=== PATIENT | male | born 1955 | race Caucasian/White ===

== ENCOUNTER 2021-05-23 12:19 | Emergency (ER) | payer MEDICARE, SELFPAY ==
[2021-05-23 12:47] VITALS: BP 164/83; PULSE 88; RESP 14; TEMP 36.9; O2SAT 96; BMI 25.8
--- NOTE | 2021-05-23 13:14 | CT_ITS ---
WS: [id number] CT HEAD NONCONTRAST HISTORY: double vision, dizzy TECHNIQUE: Contiguous axial imaging performed through the brain in 2.5 mm imaging. Bone and soft tiss ue windows. Sagittal and coronal reformats reviewed. All CT scans at [facility] use at least one of these dose optimization techniques: automated exposure control; mA and/or kV adjustment per pa tient size (includes targeted exams where dose is matched to clinical indication); or iterative recon struction. DLP: 1024.71 mGy.cm COMPARISON: None available. No acute intracranial hemorrhage, midline shift or mass effect. Mild atrophy. 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 Ventricles: Normal size with no hydrocephalus. Paranasal sinuses: Complete opacification of the RIGHT maxillary sinus with extension into the ethmoi d sinus. Mastoid air cells: Well pneumatized. Calvarium and scalp: Skull is intact with no soft tissue edema or swelling. CT/CT head wo con* [id number] IMPRESSION: 1. No acute intracranial hemorrhage or edema. 2. Mild atrophy and prior RIGHT caudate head lacunar infarct. 3. RIGHT maxillary sinus disease.
--- NOTE | 2021-05-23 13:15 | ECG_ITS ---
[facility] Test Date: 2021-05-23 Pat Name: Jacky Zepeda Department: Room: Gender: Male Payroll Representative: : 1955 Requested By: Stefania Tim Order Number: [id number] Ericka MD: Kylie Corbett M.D. Measurements Intervals [place] Rate: 79 P: 54 UT: 152 QRS: 62 QRSD: 73 T: 48 QT: 366 QTc: 420 Interpretive Statements SINUS RHYTHM No previous ECG available for comparison Electronically Signed On 05-23-2021 20:14:38 CDT by Kylie Corbett M.D. [id number]
--- NOTE | 2021-05-23 17:14 | PC.NURSE ---
Assumed care of this patient at 1700
[2021-05-23 17:15] VITALS: BP 168/94; PULSE 84; RESP 16; TEMP 36.6; O2SAT 97
[2021-05-23 17:36] LABS: Basophils # 0.1 10^3/uL (0.0-0.1); Basophils % 0.7 %; Eosinophils # 0.4 10^3/uL (0.0-0.8); Eosinophils % 3.9 %; Hematocrit 46.5 % (42.0-52.0); Lymphocytes # 2.3 10^3/uL (0.8-4.8); Lymphocytes % 26.4 %; Mean Corpuscular HGB Conc 34.4 g/dL (30.0-36.0); Mean Corpuscular Hemoglobin 29.4 pg (28.0-34.0); Mean Corpuscular Volume 85.3 fl (80-94); Mean Platelet Volume 9.9 fL (7.4-10.4); Monocytes # 0.7 10^3/uL (0.2-0.9); Monocytes % 8.1 %; Neutrophils # 5.39 10^3/uL (1.8-7.7); Neutrophils % 60.7 %; Nucleated Red Blood Cells % 0 %; Platelet Count 181 10^3/cmm (130-400); Red Blood Count 5.45 10^6/uL (4.1-5.3); Red Cell Distribution Width 12.5 % (12.1-15.1); White Blood Count 8.9 10^3/uL (4.0-10.0)
[2021-05-23 17:39] VITALS: BP 132/74; PULSE 78; RESP 16; O2SAT 98
--- NOTE | 2021-05-23 17:41 | ED_ITS ---
Documented by User: Don Ta DO 05/26/21 15:21 HPI - Neuro Symptoms/Deficit General: Chief Complaint: Neuro Symptoms/Deficit Stated Complaint: DOUBLE VISION, VERITGO, FATIGUE, WEAKNESS Time Seen by Provider: 05/23/21 16:29 History of Present Illness: HPI Narrative: 6-year-old male presents to the emergency room with complaint of double vision vertigo fatigue and weakness. This all started about 3 3 days ago. He said he is extremely tired on Friday he can barely stay awake and he had double vision issues. Most of this are resolved except he still has double vision at a distance close up he seems to be okay but at a distance of 4 feet and beyond he will start to have difficulty focusing and sees double. His states she is not had any difficulty with he has not had any problems with balance or gait no difficulty swallowing or speaking. Onset (ago): hour(s) Timing confirmed by: spouse Location: other (vision) Severity: mild Relieving factors: none Exacerbating factors: none Associated symptoms: Reports weakness; Deny chest pain, cough, diaphoresis, fevers/chills, headache(s), anorexia, malaise, nausea, seizures, short of breath, syncope, tingling, vertigo or vomiting Treatments Prior to Arrival: none Review of Systems Const: Denies: malaise or diaphoresis ENMT: Denies: throat pain, ear or mastoid pain, nasal discharge or nasal congestion Card: Denies: chest pain or syncope Resp: Denies: dyspnea, productive cough or non-productive cough GI: Denies: nausea or vomiting : Denies: flank pain, dysuria, urinary frequency or urinary urgency Skin/Breast: Denies: rash or pruritus Neuro: Denies: headache(s) or vertigo NIH stroke score NIHSS: Level Of Consciousness - 1a: 0 Level Of Consciousness Questions - 1b: Both Correct Level Of Consciousness Commands - 1c: Both Correct Best Gaze - 2: Normal Visual Aly - 3: No Visual Loss Facial Palsy - 4: Normal Motor Arm Right - 5: No Drift Motor Arm Left - 5: No Drift Motor Leg Right - 6: No Drift Motor Leg Left - 6: No Drift Limb Ataxia - 7: Absent Sensory - 8: Normal Best Language - 9: No Aphasia Dysarthia - 10: Normal Extinction And Inattention - 11: 0 Score: Total Score: 0 Physical Exam Const: COMMON NORMALS: no acute distress GENERAL APPEARANCE: cooperative and comfortable ORIENTATION/CONSCIOUSNESS: Yes awake, Yes oriented to person, Yes oriented to place and Yes oriented to time HENMT: COMMON NORMALS: normocephalic, atraumatic and hearing grossly normal bilaterally HEAD & SCALP: normocephalic and atraumatic Neck/C-Spine: COMMON NORMALS: no JVD Resp: COMMON NORMALS: normal respiratory effort, No retractions, No use of accessory muscles and clear to auscultation bilaterally AUSCULTATION: clear to auscultation bilaterally Cardio: COMMON NORMALS: no JVD, regular rate, regular rhythm and No murmurs present (Cardio) RATE: regular rate RHYTHM: regular rhythm GI: COMMON NORMALS: Soft to palpation and No hepatosplenomegaly present AUSCULTATION: Yes normoactive bowel sounds PALPATION: Yes Soft to palpation, No Tenderness to palpation present (GI), No Guarding due to palpation present (GI) and Yes No hepatosplenomegaly present Extremity: COMMON NORMALS: normal to inspection, capillary refill normal, no clubbing, cyanosis or edema, no calf tenderness and no pedal edema Neuro: SENSORIUM/ORIENTATION: Yes oriented to person, Yes oriented to place and Yes oriented to time OTHER: [id number] normal. Cranial nerves II to XII intact. Rapid alternating movements normal. See NIH score. Skin: COMMON NORMALS: no rashes or lesions noted GENERAL SKIN EXAM: no rashes or lesions noted Course 2 Vital Signs: Vital signs: Vital Signs Temperature 98 F 05/23/21 19:46 Pulse Rate 74 05/23/21 19:46 Respiratory Rate 16 05/23/21 19:46 Blood Pressure 136/80 05/23/21 19:46 Pulse Oximetry 96 05/23/21 19:46 MDM - Neuro Symptoms/Deficit MDM Narrative: Medical decision making narrative: Patient still has some double vision. He also has elevated blood pressures and think he may benefit from low-dose blood pressure medications however I am concerned if he has some vertebral artery stenosis or other compromise lowering his blood pressure may precipitate more of a stroke. Were going to do a CTA. Discussed with Dr. Carey he will assume care of the patient see his note for final diagnosis and discharge. Lab Data: Labs: Lab Results 05/23/21 05/23/21 17:30 17:30 WBC 8.9 10^3/uL 10^3/ uL (4.0-10.0) RBC 5.45 10^6/uL H 10 ^6/uL (4.1-5.3) Hgb 16.0 g/dL g/dL (11.7-16.6) Hct 46.5 % % (42.0-52.0) MCV 85.3 fl fl (80-94) MCH 29.4 pg pg (28.0-34.0) MCHC 34.4 g/dL g/dL (30.0-36.0) RDW 12.5 % % (12.1-15.1) Plt Count 181 10^3/cmm 10^3 /cmm (130-400) MPV 9.9 fL fL (7.4-10.4) Neut % (Auto) 60.7 % % Lymph % (Auto) 26.4 % % Calvert % (Auto) 8.1 % % Eos % (Auto) 3.9 % % Baso % (Auto) 0.7 % % Neut # (Auto) 5.39 10^3/uL 10^3 /uL (1.8-7.7) Lymph # (Auto) 2.3 10^3/uL 10^3/ uL (0.8-4.8) Calvert # (Auto) 0.7 10^3/uL 10^3/ uL (0.2-0.9) Eos # (Auto) 0.4 10^3/uL 10^3/ uL (0.0-0.8) Baso # (Auto) 0.1 10^3/uL 10^3/ uL (0.0-0.1) Nucleated RBC % (a uto) 0 % % Nucleated RBCs # 0.0 /100WBC /100W BC Sodium 135 mmol/L L mmol /L (136-145) Potassium 4.3 mmol/L mmol/L (3.5-5.1) Chloride 97 mmol/L L mmol/ L (98-107) Carbon Dioxide 27 mmol/L mmol/L (22-29) Anion Gap 15.3 (5-19) BUN 18 mg/dL mg/dL (8-23) Creatinine 0.7 mg/dL mg/dL (0.7-1.2) GFR Calculation 112.5 mL/min mL/m in (90-130) Glucose 289 mg/dL H mg/dL (65-115) Calculated Osmolal ity 292 mOsm/kg mOsm/ kg (285-295) Calcium 9.8 mg/dL mg/dL (8.5-10.5) Total Bilirubin 0.3 mg/dL mg/dL (0.15-1.2) AST 14 U/L U/L (0-40) ALT 18 U/L U/L (0-41) Alkaline Phosphata se 82 IU/L IU/L (40-130) Total Protein 7.5 g/dL g/dL (6.6-8.7) Albumin 4.6 g/dL g/dL (3.5-5.2) Globulin 2.9 g/dL g/dL (1.3-4.6) Discharge Plan Discharge Patient Disposition: Home Clinical Impression: Transient cerebral ischemia Condition: Stable Prescriptions: New lisinopril 10 mg tablet 10 mg PO DAILY Qty: 30 RF: 0 aspirin 81 mg tablet,delayed release (DR/EC) 81 mg PO DAILY Qty: 30 RF: 0 Plavix 75 mg tablet 75 mg PO DAILY Qty: 30 RF: 0 Discharge Orders: Discharge ED (Routine); Ordered 05/23/21 Ordered By: Don Ta Referrals: Mayelin Fields FNP [Primary Care Provider] - Discharge Diet: Usual diet Discharge Activity: Resume usual activity Patient Instructions: Hypertension (ED), Blurred Vision (ED), Opioid Safety, TIA Activity Restrictions/Additional Instructions: Thank you for visiting the emergency department. You were seen and evaluated for fatigue and visual disturbance symptoms. The exact cause of your symptoms is unclear. You should follow-up with your primary care provider and shuttler. You will be given prescriptions for further obstructive mention. Please take these as prescribed. You need follow-up within 1 week for repeat labs. Please return the emergency department for any evidence of bleeding, rash, repeated symptoms, numbness of any 1 part of the body, tingling, difficulty with speech, headache, or anything else that you are concerned about and feel needs emergency department evaluation. Sign Out Sign Out Data: Patient Sign Out occurred on 05/23/21 at 18:20. Patient's care was discussed, and care was transferred from to Aakash Vu MD. Post-Handoff Eval: Patient care handoff received from Dr. Ta. Pending at time of handoff was CT imaging. CT imaging was unremarkable. Labs reviewed. Plan as discussed to initiate antihypertensive which will be lisinopril in the context of reported possible diabetes as well as medications for further TIA prevention. Results of ED evaluation discussed with the patient. Follow-up plan, prescriptions, return precautions discussed. Patient questions answered. Patient feels safe for discharge with PCP and ophthalmology follow-up. Discharged in satisfactory condition. Coding Level of Care Code ED Cell Efficiency Supervisor for Chg Fwd Exam Comprehensive Documented by User: Aakash Vu MD 05/23/21 19:41 HPI - Neuro Symptoms/Deficit General: Chief Complaint: Neuro Symptoms/Deficit Stated Complaint: DOUBLE VISION, VERITGO, FATIGUE, WEAKNESS Time Seen by Provider: 05/23/21 16:29 Course Vital Signs: Vital signs: Vital Signs Temperature 98 F 05/23/21 19:46 Pulse Rate 74 05/23/21 19:46 Respiratory Rate 16 05/23/21 19:46 Blood Pressure 136/80 05/23/21 19:46 Pulse Oximetry 96 05/23/21 19:46 MDM - Neuro Symptoms/Deficit Lab Data: Labs: Lab Results 05/23/21 05/23/21 17:30 17:30 WBC 8.9 10^3/uL 10^3/ uL (4.0-10.0) RBC 5.45 10^6/uL H 10 ^6/uL (4.1-5.3) Hgb 16.0 g/dL g/dL (11.7-16.6) Hct 46.5 % % (42.0-52.0) MCV 85.3 fl fl (80-94) MCH 29.4 pg pg (28.0-34.0) MCHC 34.4 g/dL g/dL (30.0-36.0) RDW 12.5 % % (12.1-15.1) Plt Count 181 10^3/cmm 10^3 /cmm (130-400) MPV 9.9 fL fL (7.4-10.4) Neut % (Auto) 60.7 % % Lymph % (Auto) 26.4 % % [place] % (Auto) 8.1 % % Eos % (Auto) 3.9 % % Baso % (Auto) 0.7 % % Neut # (Auto) 5.39 10^3/uL 10^3 /uL (1.8-7.7) Lymph # (Auto) 2.3 10^3/uL 10^3/ uL (0.8-4.8) Calvert # (Auto) 0.7 10^3/uL 10^3/ uL (0.2-0.9) Eos # (Auto) 0.4 10^3/uL 10^3/ uL (0.0-0.8) Baso # (Auto) 0.1 10^3/uL 10^3/ uL (0.0-0.1) Nucleated RBC % (a uto) 0 % % Nucleated RBCs # 0.0 /100WBC /100W BC Sodium 135 mmol/L L mmol /L (136-145) Potassium 4.3 mmol/L mmol/L (3.5-5.1) Chloride 97 mmol/L L mmol/ L (98-107) Carbon Dioxide 27 mmol/L mmol/L (22-29) Anion Gap 15.3 (5-19) BUN 18 mg/dL mg/dL (8-23) Creatinine 0.7 mg/dL mg/dL (0.7-1.2) GFR Calculation 112.5 mL/min mL/m in (90-130) Glucose 289 mg/dL H mg/dL (65-115) Calculated Osmolal ity 292 mOsm/kg mOsm/ kg (285-295) Calcium 9.8 mg/dL mg/dL (8.5-10.5) Total Bilirubin 0.3 mg/dL mg/dL (0.15-1.2) AST 14 U/L U/L (0-40) ALT 18 U/L U/L (0-41) Alkaline Phosphata se 82 IU/L IU/L (40-130) Total Protein 7.5 g/dL g/dL (6.6-8.7) Albumin 4.6 g/dL g/dL (3.5-5.2) Globulin 2.9 g/dL g/dL (1.3-4.6) Discharge Plan Discharge Patient Disposition: Home Clinical Impression: Transient cerebral ischemia Condition: Stable Prescriptions: New lisinopril 10 mg tablet 10 mg PO DAILY Qty: 30 RF: 0 aspirin 81 mg tablet,delayed release (DR/EC) 81 mg PO DAILY Qty: 30 RF: 0 Plavix 75 mg tablet 75 mg PO DAILY Qty: 30 RF: 0 Discharge Orders: Discharge ED (Routine); Ordered 05/23/21 Ordered By: Don Ta Referrals: Mayelin Fields FNP [Primary Care Provider] - Discharge Diet: Usual diet Discharge Activity: Resume usual activity Patient Instructions: Hypertension (ED), Blurred Vision (ED), Opioid Safety, TIA Activity Restrictions/Additional Instructions: Thank you for visiting the emergency department. You were seen and evaluated for fatigue and visual disturbance symptoms. The exact cause of your symptoms is unclear. You should follow-up with your primary care provider and shuttler. You will be given prescriptions for further obstructive mention. Please take these as prescribed. You need follow-up within 1 week for repeat labs. Please return the emergency department for any evidence of bleeding, rash, repeated symptoms, numbness of any 1 part of the body, tingling, difficulty with speech, headache, or anything else that you are concerned about and feel needs emergency department evaluation. Sign Out Sign Out Data: Patient Sign Out occurred on 05/23/21 at 18:20. Patient's care was discussed, and care was transferred from to Aakash Vu MD. Post-Handoff Eval: Patient care handoff received from Dr. Ta. Pending at time of handoff was CT imaging. CT imaging was unremarkable. Labs reviewed. Plan as discussed to initiate antihypertensive which will be lisinopril in the context of reported possible diabetes as well as medications for further TIA prevention. Results of ED evaluation discussed with the patient. Follow-up plan, prescriptions, return precautions discussed. Patient questions answered. Patient feels safe for discharge with PCP and ophthalmology follow-up. Discharged in satisfactory condition. Coding Level of Care Code ED Cell Efficiency Supervisor for Chg Fwd Exam Comprehensive
--- NOTE | 2021-05-23 17:57 | CTR_ITS ---
PROCEDURE INFORMATION: Exam: CT Angiography Head With Contrast, Arteriography Exam date and time: 05/23/2021 5:57 PM Age: 66 years old Clinical indication: Visual disturbance; Additional info: Vision TECHNIQUE: Imaging protocol: Computed tomography angiography of the head with contrast. Exam focused on the arteries. 3D rendering (Not supervised by radiologist): MIP and/or 3D reconstructed images were created by the technologist. Total images: 859 Radiation optimization: All CT scans at this facility use at least one of these dose optimization techniques: automated exposure control; mA and/or kV adjustment per patient size (includes targeted exams where dose is matched to clinical indication); or iterative reconstruction. Contrast material: OMNI 350; Contrast volume: 95 ml; Contrast route: INTRAVENOUS (IV); COMPARISON: CT head wo con* [id number] 05/23/2021 2:01 PM RADIATION DOSE METRICS: Total DLP (mGy-cm): 2507.31 FINDINGS: ANTERIOR CIRCULATION: Right internal carotid artery: Unremarkable. Intracranial segment is patent with no significant stenosis. No aneurysm. Right middle cerebral artery: Unremarkable. No occlusion or significant stenosis. No aneurysm. Right anterior cerebral artery: Unremarkable. No occlusion or significant stenosis. No aneurysm. Left internal carotid artery: Unremarkable. Intracranial segment is patent with no significant stenosis. No aneurysm. Left middle cerebral artery: Unremarkable. No occlusion or significant stenosis. No aneurysm. Left anterior cerebral artery: Unremarkable. No occlusion or significant stenosis. No aneurysm. POSTERIOR CIRCULATION: Right vertebral artery: Unremarkable. No occlusion or significant stenosis. No aneurysm. Left vertebral artery: Unremarkable. No occlusion or significant stenosis. No aneurysm. Basilar artery: Unremarkable. No occlusion or significant stenosis. No aneurysm. Right posterior cerebral artery: Unremarkable. No occlusion or significant stenosis. No aneurysm. Left posterior cerebral artery: Unremarkable. No occlusion or significant stenosis. No aneurysm. Paranasal sinuses: Right maxillary sinus mucocele. Chronic ethmoid sinusitis. IMPRESSION: No large vessel stenosis or occlusion. PROCEDURE INFORMATION: Exam: CT Angiography Neck With Contrast Exam date and time: 05/23/2021 5:57 PM Age: 66 years old Clinical indication: Visual disturbance; Additional info: Vision TECHNIQUE: Imaging protocol: Computed tomography angiography of the neck with contrast. 3D rendering (Not supervised by radiologist): MIP and/or 3D reconstructed images were created by the technologist. Radiation optimization: All CT scans at this facility use at least one of these dose optimization techniques: automated exposure control; mA and/or kV adjustment per patient size (includes targeted exams where dose is matched to clinical indication); or iterative reconstruction. Contrast material: OMNI 350; Contrast volume: 95 ml; Contrast route: INTRAVENOUS (IV); COMPARISON: CT head wo con* [id number] 05/23/2021 2:01 PM RADIATION DOSE METRICS: Total DLP (mGy-cm): 2507.31 FINDINGS: Right common carotid artery: No stenosis. No dissection or occlusion. Right internal carotid artery: No stenosis of the extracranial segment. No dissection or occlusion. Right external carotid artery: No occlusion or stenosis of the origin. Left common carotid artery: No stenosis. No dissection or occlusion. Left internal carotid artery: No stenosis of the extracranial segment. No dissection or occlusion. Left external carotid artery: No occlusion or stenosis of the origin. Right vertebral artery: No stenosis. No dissection or occlusion. Left vertebral artery: No stenosis. No dissection or occlusion. Dental: Large dental mayco with destruction 1st left mandibular molar. Soft tissues: Unremarkable. No significant soft tissue swelling. Bones/joints: No visible acute osseous abnormality. Advanced degenerative disease and degenerative disc disease with spondylosis deformans of the cervical spine C4, C5, C6, and C7. Anterior claw syndesmophyte formation. Mild scoliosis. CT/CT angio headneck* [id number] IMPRESSION: No stenosis or occlusion. REFERENCES: NASCET CRITERIA. The degree of internal carotid artery stenosis is based on NASCET criteria. Normal is no stenosis. Mild is less than 50% stenosis. Moderate is 50-69% stenosis. Severe is 70% to 99% stenosis. Total occlusion is no detectable patent lumen. Radiation Dose CTDIVOL = (mGy): DLP = 2507.31~2507.31 (mGy-cm)
[2021-05-23 18:06] LABS: Alanine Aminotransferase 18 U/L (0-41); Albumin Level 4.6 g/dL (3.5-5.2); Alkaline Phosphatase 82 IU/L (40-130); Anion Gap 15.3 (5-19); Aspartate Amino Transferase 14 U/L (0-40); Blood Urea Nitrogen 18 mg/dL (8-23); Calcium 9.8 mg/dL (8.5-10.5); Carbon Dioxide 27 mmol/L (22-29); Chloride 97 mmol/L (98-107); Creatinine Clr Calc Pharmacy 91.1035; Globulin 2.9 g/dL (1.3-4.6); Glomerular Filtration Rate 112.5 mL/min (90-130); Glucose 289 mg/dL (65-115); Osmolality Calculated 292 mOsm/kg (285-295); Potassium 4.3 mmol/L (3.5-5.1); Sodium 135 mmol/L (136-145); Total Bilirubin 0.3 mg/dL (0.15-1.2); Total Protein 7.5 g/dL (6.6-8.7)
[2021-05-23] MEDS: iohexol 350 mg/mL 100 mL Btl IV (18:52)
[2021-05-23 19:13] VITALS: BP 125/83; PULSE 72; RESP 14; O2SAT 96
[2021-05-23 19:46] VITALS: BP 136/80; PULSE 74; RESP 16; TEMP 36.6; O2SAT 96
--- NOTE | 2021-05-31 13:29 | DCPLANNER ---
process improvement manager had message to speak with patient about getting established with a primary care physician, and a follow up with ophthamology, child support case officer was unable to speak with patient at this time, and unable to leave a voicemail for patient.
== END 2021-05-23 19:48 | disposition home or self-care (01) ==
PROVIDERS: Physician Assistant; Emergency Provider Emergency Medicine; PCP Nurse Practitioner
DX: G45.9 Transient cerebral ischemic attack, unspecified (principal); Z79.82 Long term (current) use of aspirin; Z79.02 Long term (current) use of antithrombotics/antiplatelets
CPT/HCPCS: 70450; 70496; 70498; 80053; 85025; 93005; 99283; Q9967